=== PATIENT | male | born 1975 | race Caucasian/White ===

== ENCOUNTER 2016-06-24 06:00 | Day surgery (SDC) | payer BC ==
[2016-06-18 13:06] VITALS: BMI 29.5
--- NOTE | 2016-06-22 09:17 | HP ---
DATE OF ADMISSION: 06/24/2016 DATE OF DICTATION: 06/10/2016 DATE OF SURGERY: Undetermined. BRIEF HISTORY: This is a 32-year-old gentleman presents to the office with a 2+ year history of having a right inguinal hernia. Patient has noted he has had this hernia due to the mass that he sees in the right groin. Over this time course of hernia has gotten larger and now he has become more symptomatic from the hernia. Patient states that if he stands for prolonged periods of time, he has shooting pains that go down into the right leg. He also has a throbbing discomfort in the right groin. The lump is always present, it rarely recedes. Patient has had no nausea, no change in bowel habits. PAST MEDICAL HISTORY: He denies coronary artery disease, hypertension, diabetes. Patient has had a hernia repair at in 1977. He does not remember which side was repaired. MEDICATION: Vitamins. ALLERGIES: PENICILLIN. Patient has severe reaction. He did not specify exactly what reaction. SOCIAL HISTORY: Patient is an structural steel ironworker. He does not smoke. He drinks socially. PHYSICAL EXAMINATION: Lungs: Clear. Heart: Regular rhythm. Abdomen: Soft. Nontender. Nondistended. He has an obvious large right inguinal hernia with encroachment into the right proximal scrotum. The hernia is partially reducible in the supine position and the right testicle is within normal limits but much higher riding than that of the left testicle. On the left, there is no obvious defect. I get a sense he may have a small hernia; however he clearly has a fair amount of laxity in the left groin. Left scrotum testicle is within normal limits. IMPRESSION/PLAN: Chronically incarcerated right inguinal hernia, acute right inguinal hernia: this is a 40-year-old gentleman with a 2+ year history of having the right inguinal hernia. The patient's hernia now has become significantly more symptomatic and he now wishes to have this repaired. Patient and myself had a long conversation regarding the pros and cons of various approaches, and we have opted to proceed with bilateral laparoscopic inguinal hernia repair. At the time of laparoscopy, the left side will be examined, and if truly I am right that there is a hernia, it will be repaired; if there is no obvious defect in the left groin, a piece of mesh will be left in the direct inguinal space for reinforcement since this patient does a lot of heavy lifting and is an structural steel ironworker. The indications, alternatives, complications of procedure discussed at length, especially the possibility of a seroma, which may or may not resolve. He understands these complications and wants to proceed. He has no family physician. ODALYS ROSENTHAL M.D. [id number]
[2016-06-24] MEDS ORDERED: TAMSULOSIN HCL 0.4 MG CAP.ER.24H (FP) ONE (06:49)
[2016-06-24] MEDS ORDERED: BUPIVACAINE HCL/PF (5 MG/ML) 30 ML VIAL IJ ONE (07:27)
[2016-06-24] MEDS ORDERED: DEXAMETHASONE SOD PHOSPHATE/PF 10 MG/ML SDV ONE (07:27)
[2016-06-24] MEDS ORDERED: MIDAZOLAM HCL 2 MG/2 ML SINGLE DOSE VIAL ONE (07:27)
[2016-06-24] MEDS ORDERED: PROPOFOL 20 ML ONE ×4 (07:38→09:12)
[2016-06-24] MEDS ORDERED: SUCCINYLCHOLINE CHLORIDE 200 MG/10 ML VIAL ONE (07:38)
[2016-06-24] MEDS ORDERED: ROCURONIUM BROMIDE 50 MG/5 ML VIAL ONE ×2 (07:39→08:31)
[2016-06-24] MEDS ORDERED: LIDOCAINE HCL 2% 100 MG/5 ML DISP.SYRIN ONE (08:07)
[2016-06-24] MEDS ORDERED: DESFLURANE GAS 240 ML BOTTLE IH ONE (08:15)
[2016-06-24] MEDS ORDERED: LEVOFLOXACIN 500 MG IVPB 100 ML IVPB ONE (08:16)
[2016-06-24] MEDS ORDERED: LEVOFLOXACIN 25 MG/1 ML (20 ML VIAL) IVPB ONE (08:16)
[2016-06-24] MEDS ORDERED: ONDANSETRON 4 MG/2 ML VIAL ONE ×2 (08:39→09:32)
[2016-06-24] MEDS ORDERED: DEXAMETHASONE SOD PHOSPHATE 4 MG/1 ML VIAL ONE (08:39)
[2016-06-24] MEDS ORDERED: NEOSTIGMINE METHYLSULFATE 0.5 MG/ML - 10 ML MDV ONE (09:20)
[2016-06-24] MEDS ORDERED: oxyCODONE HCL 5 MG TABLET PO PRN (09:49)
[2016-06-24] MEDS ORDERED: ONDANSETRON 4 MG/2 ML VIAL IVPUSH PRN (09:49)
[2016-06-24] MEDS ORDERED: LACTATED RINGERS SOLUTION 1,000 ML IV SCH (10:00)
[2016-06-24 11:07] VITALS: TEMP 98.3
[2016-06-24] MEDS ORDERED: oxyCODONE HCL 5 MG TABLET ONE (12:12)
[2016-06-24 13:44] VITALS: BP 120/62; PULSE 62
--- NOTE | 2016-06-28 11:16 | OP ---
DATE OF OPERATION: 06/24/2016 PROCEDURE: 1. Laparoscopic repair of incarcerated right inguinal hernia. 2. Laparoscopic repair of recurrent left inguinal hernia, all done with mesh. PREOPERATIVE DIAGNOSIS: 1. Large, complex right inguinal hernia. 2. Suspect recurrent left inguinal hernia. POSTOPERATIVE DIAGNOSIS: 1. Right chronically incarcerated direct hernia with an indirect component (pantaloon). 2. Recurrent left direct inguinal hernia. SURGEON: Fernando Salazar MD WEB SITE MANAGER: Olvin Willis DO ANESTHESIA: Elizabeth Goncalves MD (general) ESTIMATED BLOOD LOSS: Minimal. SPECIMEN: None. INDICATION FOR PROCEDURE: This is a 40-year-old gentleman with a greater than 2 -year history of having a large right inguinal hernia. Over this time course, he has become significantly symptomatic and it has gotten larger. He now has a complex hernia and wishes to have this repaired. DESCRIPTION OF PROCEDURE: Patient was identified and appropriately positioned on the operating room table. After placement of general anesthesia, the area was prepped and draped in the usual sterile fashion with ChloraPrep. An infraumbilical incision was made deep in the subcutaneous tissues. The fascia was divided sharply. The muscle on the right was split and under direct vision, a dissector balloon followed by a structural balloon placed. Also under direct vision, a suprapubic 11-mm port placed. The following structures on the right side were identified: The pubic tubercle, Cristi ligament, the epigastric vessels, spermatic cord and lateral abdominal wall. During this dissection, he had an incarcerated direct inguinal hernia containing fat. This reduced back in the pre-peritoneal space with blunt dissection. He had an indirect inguinal hernia sac and a moderate-sized cord lipoma, both reduced back in the pre-peritoneal space. A 4.5 x 6 piece of Versatex mesh was keyholed and placed through the use of the port site. The mesh wrapped around the cord structures laterally to reconstruct the internal ring. The lateral mesh was anchored to the anterior abdominal wall and lateral abdominal wall. Medially, the mesh was anchored to the pubic tubercle and Cristi ligament. Upon completion of the right side, similar structures on the left side were identified. On the left side, the patient was noted to have a recurrent direct inguinal hernia. This reduced back in the pre-peritoneal space. This contained fat. He had a moderate-sized cord lipoma as well as a sac that was at the level of the internal ring. This was back and reduced well below the inguinal ring. Another 4.5 x 6 piece of Versatex mesh was keyholed and placed through the use of the port site. The mesh wrapped around the cord structures laterally to reconstruct the internal ring. Laterally, the mesh well overlapped in the midline, anchored to the anterior abdominal wall, pubic tubercle and Cristi ligament. The pre-peritoneal space was desufflated under direct vision. The operative field was examined and noted to be hemostatic. Ports were removed. Port sites hemostatic as well. All anterior abdominal wall and lateral abdominal wall anchors placed under direct counter-palpation. The fascia at the superior port site and the infraumbilical port site was approximated with interrupted 0-Vicryl suture. All skin closed with 4-0 silk and Biosyn followed by Dermabond. The instrument and sponge counts were correct. The attestation and brief OP note handwritten on the preprinted form. [facility] queried prior to giving any narcotics. Lana BHAKTA [id number] MTDD
== END 2016-06-24 13:50 | disposition home or self-care (01) ==
LOC: FASU 06:00
PROVIDERS: ATTEND Surgery
PROC: 0YUA4JZ Supplement Bilateral Inguinal Region with Synthetic Substitute, Percutaneous Endoscopic Approach (ICD-10-PCS; principal; 2016-06-24 08:29)
DX: K40.30 Unilateral inguinal hernia, with obstruction, without gangrene, not specified as recurrent (principal); K40.91 Unilateral inguinal hernia, without obstruction or gangrene, recurrent
CPT/HCPCS: 94760